=== PATIENT | male | born 1940 | race Caucasian/White ===

== ENCOUNTER → 2018-02-12 07:45 | Outpatient (CLI) | payer MEDICARE, SELFPAY ==
[2018-02-12 07:50] LABS: Microscopic, Urine URINE MICROSCOPIC (MICROSCOPIC)
--- NOTE | 2018-02-12 08:07 | CA_ITS ---
PROCEDURE: 2-D M-mode and color Doppler study INDICATIONS FOR THE TEST: Chest pain COPD Heart MurmurX Tobacco Smoking Palpitations Fatigue Syncope Edema HypertensionXDiabetes MellitusX Rheumatic Fever SOB NARANJO ObesityXHyperlipidemiaX Family History HD Additional History ABN EKG LBBB,AF? PATIENT INFORMATION HEIGHT: 73 WEIGHT:255 GENDER: Male B/P:170/90 2-D/M-MODE INTERPRETATION: 2-D MEASUREMENTS OBSERVED VALUES IN CMS Right Ventricular Dimension (RVDd) 2.5 Interventricular Septum (Thickness)(IVsd) 1.0 Left Ventricular Internal Dimensions(LVIDd) 5.5 Left Ventricular Posterior Wall (Thickness)(LVPWd) 1.2 Aortic Root 4.0 Aortic Cusp Separation 1.4 Left Atrial Dimensions (LAD) 4.4 2D 1. Left atrium is mildly enlarged, left ventricle is normal size, there is mild qualitative concentric left ventricular hypertrophy, visually estimated ejection fraction 55% with no obvious regional wall motion abnormality. 2. The right atrium is normal size, right ventricle is mildly enlarged with normal contractility. 3. The aortic valve is thickened and calcified with mild restriction the leaflet mobility. 4. The mitral and tricuspid valve leaflets are minimally thickened. 5. The pulmonic valve is poorly visualized. 6. No significant pericardial effusion noted. DOPPLER INTERROGATION: The maximum aortic out flow velocity recorded study 2.3 m/s, resulting in a mean gradient across valve of 11 mmHg which represents mild aortic stenosis, there is mild aortic insufficiency present. There is mild mitral and tricuspid regurgitation present, calculated right ventricular systolic pressure approximately 50 mmHg consistent with moderate pulmonary hypertension, diastolic parameters are inconclusive. CONCLUSION: 1. Mildly enlarged left atrium, normal left ventricular size, visually estimated ejection fraction 55% with no obvious regional wall motion abnormality, diastolic parameters are inconclusive. 2. Mildly enlarged right ventricle with normal contractility. 3. Thickened and calcified aortic valve mean gradient across valve of 11 mmHg represents mild aortic stenosis, there is mild aortic insufficiency present. 4. Mild mitral and tricuspid regurgitation, calculated right ventricular systolic pressure is 50 mmHg consistent with moderate pulmonary hypertension. 5. No significant pericardial effusion noted.
[2018-02-12 08:35] LABS: Basophils % 0.4 % (0.1-2.0); Eosinophils # 0.1 K/mm3 (0.0-0.4); Eosinophils % 2.7 % (0.1-12.0); Hematocrit 44.5 % (42.0-52.0); Hemoglobin 13.8 g/dL (14.1-18.0); Lymphocytes # 1.5 K/mm3 (0.7-4.5); Lymphocytes % 29.7 K/mm3 (10-50); Mean Corpuscular HGB Conc 31.1 g/dL (31.8-35.4); Mean Corpuscular Hemoglobin 28.1 pg (27.0-31.2); Mean Corpuscular Volume 90.4 fl (80-94); Mean Platelet Volume 8.1 fl (7.4-10.4); Monocytes # 0.3 K/mm3 (0.1-1.0); Monocytes % 6.3 % (1.7-9.3); Neutrophils # 3.2 K/mm3 (1.8-7.8); Neutrophils % 60.8 % (37.0-80.0); Platelet Count 181 K/mm3 (142-424); Red Blood Count 4.92 M/mm3 (4.60-6.20); Red Cell Distribution Width 13.9 % (11.5-17.5); White Blood Count 5.2 K/mm3 (4.8-10.8)
[2018-02-12 09:22] LABS: Appearance,Urine CLEAR (Clear); Bilirubin,Urine Negative (Negative); Blood, Urine Negative (Negative); Color,Urine YELLOW (Yellow); Glucose,Urine (UA) Negative (Negative); Ketones,Urine Negative (Negative); Leukocyte Esterase,Urine Negative (Negative); Nitrate,Urine Negative (Negative); PH,Urine 5.5 (5.0-8.5); Protein,Urine Negative (Negative); Urobilinogen,Urine 0.2 EU/dl (0.2)
[2018-02-12 09:41] LABS: Hemoglobin A1C 6.4 % (0.0-7.0)
[2018-02-12 10:06] LABS: Bacteria,Urine Trace /lpf; Squamous Epithelial Cell,Urine Occasional #/hpf (0-5); Uric Acid Crystals,Urine 2+ /lpf; WBC,Urine Occasional #/hpf (0-3)
[2018-02-12 11:11] LABS: Alanine Aminotransferase 17 U/L (12-78); Albumin Level 3.3 gm/dL (3.4-5.0); Albumin/Globulin Ratio 0.8 (1.1-1.8); Alkaline Phosphatase 85 U/L (46-116); Anion Gap 11.6 mEq/L (5-15); Aspartate Amino Transferase 18 U/L (15-37); Bilirubin,Total 0.5 mg/dL (0.2-1.0); Blood Urea Nitrogen 21 mg/dL (7-18); Calcium 8.9 mg/dL (8.5-10.1); Carbon Dioxide 30 mmol/L (21.0-32.0); Chloride 106 mmol/L (98-107); Chol/HDL Ratio 5.2 (1-3.5); Cholesterol 202 mg/dL (140-200); Creatinine,Serum 0.83 mg/dL (0.70-1.30); Estimated Glomerular Filt Rate 90 ml/min (>60); GFR (African American) 109 ML/MIN (>60); Globulin 3.9 gm/dl (1.3-3.2); Glucose 124 mg/dL (74-106); HDL Cholesterol 39 mg/dL (27-67); LDL Cholesterol 130 mg/dL (0-130); Potassium 4.6 mmoL/L (3.5-5.1); Prostate Specific Ag Screen 1.5 ng/mL (0.0-4.0); Sodium 143 mmol/L (136-145); Thyroid Stimulating Hormone 5.03 uIU/ml (0.358-3.740); Total Protein,Serum 7.2 gm/dL (6.4-8.2); Triglycerides 163 mg/dL (30-200); VLDL Cholesterol 33 mg/dL (0-40)
[2018-02-15 13:30] LABS: Microalbumin, Urine <3.0 ug/mL (Not Estab.)
== END ==
PROVIDERS: Visit Provider Emergency Medicine
DX: Z12.5 Encounter for screening for malignant neoplasm of prostate (principal); E78.5 Hyperlipidemia, unspecified; E11.9 Type 2 diabetes mellitus without complications; E03.9 Hypothyroidism, unspecified; M83.9 Adult osteomalacia, unspecified; E80.7 Disorder of bilirubin metabolism, unspecified; R01.1 Cardiac murmur, unspecified
CPT/HCPCS: 36415; 80053; 80061; 81001; 82043; 83036; 84443; 85025; 93306; G0103

== ENCOUNTER → 2018-04-02 08:29 | Outpatient (CLI) | payer MEDICARE, SELFPAY ==
[2018-04-02 12:17] LABS: Thyroid Stimulating Hormone 1.42 uIU/ml (0.358-3.740)
== END ==
PROVIDERS: Visit Provider Emergency Medicine
DX: E03.9 Hypothyroidism, unspecified (principal)
CPT/HCPCS: 36415; 84443

== ENCOUNTER → 2018-12-09 07:36 | Outpatient (CLI) | payer MEDICARE, SELFPAY ==
[2018-12-09 07:44] LABS: Microscopic, Urine URINE MICROSCOPIC (MICROSCOPIC)
[2018-12-09 08:04] LABS: Basophils % 0.8 % (0.1-2.0); Eosinophils # 0.1 K/mm3 (0.0-0.4); Eosinophils % 2.9 % (0.1-12.0); Hemoglobin 13.8 g/dL (14.1-18.0); Lymphocytes # 1.3 K/mm3 (0.7-4.5); Lymphocytes % 26.4 % (10-50); Mean Corpuscular HGB Conc 32.9 g/dL (31.8-35.4); Mean Corpuscular Hemoglobin 28.4 pg (27.0-31.2); Mean Corpuscular Volume 86.5 fl (80-94); Mean Platelet Volume 7.9 fl (7.4-10.4); Monocytes # 0.3 K/mm3 (0.1-1.0); Neutrophils # 3.1 K/mm3 (1.8-7.8); Platelet Count 187 K/mm3 (142-424); Red Blood Count 4.85 M/mm3 (4.60-6.20); Red Cell Distribution Width 14.1 % (11.5-17.5); White Blood Count 4.8 K/mm3 (4.8-10.8)
[2018-12-09 08:16] LABS: Appearance,Urine CLEAR (Clear); Bilirubin,Urine Negative (Negative); Blood, Urine Negative (Negative); Color,Urine YELLOW (Yellow); Glucose,Urine (UA) Negative (Negative); Ketones,Urine Negative (Negative); Leukocyte Esterase,Urine Negative (Negative); Nitrate,Urine Negative (Negative); Protein,Urine Negative (Negative); Urobilinogen,Urine 0.2 EU/dl (0.2)
[2018-12-09 08:25] LABS: Bacteria,Urine Trace /lpf; Squamous Epithelial Cell,Urine Occasional #/hpf (0-5)
[2018-12-09 08:56] LABS: Erythrocyte Sedimentation Rate 43 mm/hr (0-20)
[2018-12-09 09:42] LABS: Alanine Aminotransferase 20 U/L (12-78); Albumin Level 3.1 gm/dL (3.4-5.0); Albumin/Globulin Ratio 0.8 (1.1-1.8); Alkaline Phosphatase 87 U/L (46-116); Anion Gap 12.6 mEq/L (5-15); Aspartate Amino Transferase 15 U/L (15-37); Bilirubin,Total 0.4 mg/dL (0.2-1.0); Blood Urea Nitrogen 20 mg/dL (7-18); Calcium 8.7 mg/dL (8.5-10.1); Carbon Dioxide 30 mmol/L (21.0-32.0); Chloride 105 mmol/L (98-107); Cholesterol 204 mg/dL (140-200); Creatinine,Serum 0.83 mg/dL (0.70-1.30); Estimated Glomerular Filt Rate 90 ml/min (>60); GFR (African American) 109 ML/MIN (>60); Glucose 123 mg/dL (74-106); HDL Cholesterol 41 mg/dL (27-67); LDL Cholesterol 144 mg/dL (0-130); Potassium 4.6 mmoL/L (3.5-5.1); Prostate Specific Ag, Diagnost 1.36 ng/mL (0.0-4.0); Sodium 143 mmol/L (136-145); Thyroid Stimulating Hormone 2.48 uIU/ml (0.358-3.740); Total Protein,Serum 7.1 gm/dL (6.4-8.2); Triglycerides 93 mg/dL (30-200); VLDL Cholesterol 19 mg/dL (0-40)
[2018-12-09 11:11] LABS: Hemoglobin A1C 6.6 % (0.0-7.0)
[2018-12-11 14:26] LABS: Vitamin B12 373 pg/mL (232-1245)
== END ==
PROVIDERS: Visit Provider Emergency Medicine
DX: E03.9 Hypothyroidism, unspecified (principal); E11.9 Type 2 diabetes mellitus without complications; R97.20 Elevated prostate specific antigen [PSA]; I10 Essential (primary) hypertension; E78.5 Hyperlipidemia, unspecified; E53.8 Deficiency of other specified B group vitamins
CPT/HCPCS: 36415; 80053; 80061; 81001; 82088; 82533; 82607; 82746; 83036; 84153; 84443; 85025; 85651

== ENCOUNTER → 2018-12-11 08:11 | Outpatient (CLI) | payer MEDICARE, SELFPAY ==
[2018-12-18 06:54] LABS: 5-HIAA, Urine 2.4 mg/L (Undefined); 5-HIAA, Urine, 24Hr. 5.2 mg/24 hr (0.0-14.9)
[2018-12-20 06:18] LABS: Metanephrine, U,24hr 196 ug/24 hr (45-290); Metanephrine, Ur 91 ug/L (Undefined); Normetanephr.,U,24h 417 ug/24 hr (82-500); Normetanephrine, Ur 194 ug/L (Undefined)
[2018-12-25 17:08] LABS: Epinephrine, U, 24hr 6 ug/24 hr (0-20); Norepinephrine,U,24h 58 ug/24 hr (0-135)
[2018-12-26 07:08] LABS: Dopamine, Ur, 24hr 316 ug/24 hr (0-510); Dopamine, Urine 147 ug/L (Undefined); Epinephrine, Urine 3 ug/L (Undefined); Norepinephrine, Ur 27 ug/L (Undefined)
== END ==
PROVIDERS: Visit Provider Emergency Medicine
DX: I10 Essential (primary) hypertension (principal)
CPT/HCPCS: 82384; 83497; 83835

== ENCOUNTER → 2021-03-14 15:42 | Outpatient (CLI) | payer MEDICARE, SELFPAY ==
[2021-03-14 15:54] LABS: Basophils % 0.6 % (0.1-2.0); Eosinophils # 0.1 K/mm3 (0.0-0.4); Eosinophils % 2.1 % (0.1-12.0); Hematocrit 42.6 % (42.0-52.0); Hemoglobin 14.2 g/dL (14.1-18.0); Lymphocytes # 1.5 K/mm3 (0.7-4.5); Lymphocytes % 25.2 % (10-50); Mean Corpuscular HGB Conc 33.4 g/dL (31.8-35.4); Mean Corpuscular Hemoglobin 30.1 pg (27.0-31.2); Mean Corpuscular Volume 90.2 fl (80-94); Mean Platelet Volume 9.1 fl (7.4-10.4); Monocytes # 0.4 K/mm3 (0.1-1.0); Neutrophils % 66.1 % (37.0-80.0); Platelet Count 193 K/mm3 (142-424); Red Blood Count 4.72 M/mm3 (4.60-6.20); Red Cell Distribution Width 14.8 % (11.5-17.5)
[2021-03-14 16:19] LABS: Chloride 105 mmol/L (98-107); Sodium 140 mmol/L (136-145)
[2021-03-14 16:20] LABS: Potassium 4.4 mmoL/L (3.5-5.1)
[2021-03-14 16:22] LABS: Alanine Aminotransferase 15 U/L (12-78); Albumin Level 3.7 g/dl (3.5-5.0); Alkaline Phosphatase 86 U/L (38-126); Anion Gap 11.4 mEq/L (5-15); Aspartate Amino Transferase 23 U/L (17-59); Bilirubin,Total 0.4 mg/dl (0.2-1.3); Blood Urea Nitrogen 19 mg/dl (9-20); Carbon Dioxide 28 mmol/L (22.0-30.0); Estimated Glomerular Filt Rate 93 ml/min (>60); GFR (African American) 113 ML/MIN (>60); Globulin 3.7 g/dL (1.3-3.2); Total Protein,Serum 7.4 g/dl (6.3-8.2)
[2021-03-14 16:23] LABS: Calcium 8.9 mg/dl (8.4-10.2); Chol/HDL Ratio 4.5 (1-3.5); Cholesterol 205 mg/dl (140-200); Glucose 137 mg/dl (74-100); HDL Cholesterol 46 mg/dl (40-60); Triglycerides 137 mg/dl (30-150); VLDL Cholesterol 27 mg/dL (0-40)
[2021-03-14 16:34] LABS: Direct LDL Cholesterol 115.81 mg/dL (100-129)
[2021-03-14 16:40] LABS: T4 (Thyroxine) 6.1 ug/dl (5.53-11.0)
[2021-03-14 16:54] LABS: Thyroid Stimulating Hormone 2.58 uIU/mL (0.465-4.68)
[2021-03-14 17:02] LABS: 25-OH Vitamin D, Total 30.8 ng/mL (30-100)
== END ==
PROVIDERS: Visit Provider Emergency Medicine
DX: E55.9 Vitamin D deficiency, unspecified (principal); I10 Essential (primary) hypertension
CPT/HCPCS: 80053; 80061; 82306; 84436; 84443; 85025

== ENCOUNTER → 2022-03-07 14:54 | Outpatient (CLI) | payer MEDICARE, SELFPAY ==
[2022-03-07 14:35] LABS: Basophils # 0.1 K/mm3 (0-0.2); Basophils % 0.8 % (0.1-2.0); Eosinophils # 0.1 K/mm3 (0.0-0.4); Eosinophils % 1.8 % (0.1-12.0); Hematocrit 44.2 % (42.0-52.0); Hemoglobin 13.1 g/dL (14.1-18.0); Lymphocytes # 1.5 K/mm3 (0.7-4.5); Lymphocytes % 21.6 % (10-50); Mean Corpuscular HGB Conc 29.6 g/dL (31.8-35.4); Mean Corpuscular Hemoglobin 28.3 pg (27.0-31.2); Mean Corpuscular Volume 95.7 fl (80-94); Mean Platelet Volume 9.2 fl (7.4-10.4); Monocytes # 0.5 K/mm3 (0.1-1.0); Monocytes % 6.6 % (1.7-9.3); Neutrophils # 4.7 K/mm3 (1.8-7.8); Neutrophils % 69.3 % (37.0-80.0); Platelet Count 224 K/mm3 (142-424); Red Blood Count 4.61 M/mm3 (4.60-6.20); Red Cell Distribution Width 14.9 % (11.5-17.5); White Blood Count 6.8 K/mm3 (4.8-10.8)
[2022-03-07 14:45] LABS: Alanine Aminotransferase 16 U/L (12-78); Albumin Level 3.5 g/dl (3.5-5.0); Albumin/Globulin Ratio 0.9 (1.1-1.8); Alkaline Phosphatase 78 U/L (38-126); Anion Gap 9.6 mEq/L (5-15); Aspartate Amino Transferase 23 U/L (17-59); Bilirubin,Total 0.2 mg/dl (0.2-1.3); Blood Urea Nitrogen 15 mg/dl (9-20); Carbon Dioxide 31 mmol/L (22.0-30.0); Chloride 103 mmol/L (98-107); Chol/HDL Ratio 5.4 (1-3.5); Cholesterol 183 mg/dl (140-200); Estimated Glomerular Filt Rate 81 ml/min (>60); GFR (African American) 98 ML/MIN (>60); Globulin 3.7 g/dL (1.3-3.2); Glucose 117 mg/dl (74-100); HDL Cholesterol 34 mg/dl (40-60); Potassium 4.6 mmoL/L (3.5-5.1); Sodium 139 mmol/L (136-145); Total Protein,Serum 7.2 g/dl (6.3-8.2); Triglycerides 200 mg/dl (30-150); VLDL Cholesterol 40 mg/dL (0-40)
[2022-03-07 14:55] LABS: Direct LDL Cholesterol 91.23 mg/dL (100-129)
[2022-03-07 15:06] LABS: 25-OH Vitamin D, Total 24.7 ng/mL (30-100)
[2022-03-07 15:20] LABS: Thyroid Stimulating Hormone 2.62 uIU/mL (0.465-4.68)
== END ==
PROVIDERS: PCP Emergency Medicine; Visit Provider Emergency Medicine
DX: E66.9 Obesity, unspecified (principal); I10 Essential (primary) hypertension; R53.83 Other fatigue; Z12.5 Encounter for screening for malignant neoplasm of prostate; Z68.30 Body mass index [BMI] 30.0-30.9, adult
CPT/HCPCS: 80053; 80061; 82306; 84443; 85025; G0103

== ENCOUNTER 2022-07-16 08:45 | Emergency (ER) | payer MEDICARE, SELFPAY ==
[2022-07-16 08:45] VITALS: BP 184/85; PULSE 89; RESP 20; TEMP 37; O2SAT 96; BMI 30.3
--- NOTE | 2022-07-16 08:57 | PC.NURSE ---
ED MD AT BEDSIDE
--- NOTE | 2022-07-16 09:01 | XR_ITS ---
PROCEDURE INFORMATION: Exam: XR Chest Exam date and time: 07/16/2022 9:49 AM Age: 82 years old Clinical indication: Cough and shortness of breath; Patient HX: Right lower lobe of lung removed in the 's TECHNIQUE: Imaging protocol: Radiologic exam of the chest. Views: 2 views. COMPARISON: No relevant prior studies available. FINDINGS: Lungs: Surgical changes in the right lung. Pulmonary vascular congestion. Pleural spaces: Possible small right pleural effusion versus pleural thickening and elevation of the right hemidiaphragm given prior right lung surgery. No discernible pneumothorax. Heart/Mediastinum: Unremarkable. No cardiomegaly. Bones/joints: Unremarkable. IMPRESSION: 1. Pulmonary vascular congestion. 2. Possible small right pleural effusion versus pleural thickening and elevation of the right hemidiaphragm given prior right lung surgery.
[2022-07-16 09:03] LABS: Coronavirus 19, PCR Not Detected (NotDetected); Influenza A, PCR Not Detected (NotDetected); Influenza B, PCR Not Detected (NotDetected)
--- NOTE | 2022-07-16 09:03 | HMH.EDGENADL ---
Discharge Plan Disposition Patient Disposition: Home, Self-Care Condition: Good Prescriptions Prescriptions: New doxycycline hyclate 100 mg capsule 100 mg PO BID 10 Days Qty: 20 0RF albuterol sulfate 90 mcg/actuation HFA aerosol inhaler 2 inh inhalation Q6H PRN (Reason: shortness of breath or wheezing) Qty: 6.7 0RF methylprednisolone [Medrol (Remberto)] 4 mg tablets,dose pack 4 mg PO DAILY Qty: 21 0RF No Action clonidine HCl 0.1 mg tablet 0.1 mg PO HS Qty: 90 1RF ergocalciferol (vitamin D2) 1,250 mcg (50,000 unit) capsule 1,250 mcg PO WEEKLY Qty: 14 3RF losartan 100 mg tablet 100 mg PO DAILY Qty: 90 1RF Referrals Follow up/Referrals: Dom Pedraza MD [Primary Care Provider] - See instructions Activity Restrictions/Add. Instructions Additional Instructions/Restrictions: You were evaluated in the emergency department today and diagnosed with pneumonia. Please seed cone picker your prescriptions to the pharmacy and use them as prescribed. Follow-up with your primary care provider over the next 48 hours. Return to the emergency department for any new or worsening symptoms. Clinical Impressions Clinical Impression: Pneumonia Qualifiers: Pneumonia type: due to unspecified organism Laterality: right Lung location: unspecified part of lung Qualified Code(s): J18.9 - Pneumonia, unspecified organism Instructions Patient Instructions: Pneumonia-Adult Discharge ED Provider: Shante Malone General Adult HPI General Chief complaint: Upper Respiratory Infection Stated complaint: SOA, Drainage, congestion, no appetite Time Seen by Provider: 07/16/22 08:53 Mode of Arrival: Ambulatory Limitations: No Limitations Description of Symptoms (Recalled from ER Triage Doc. by RN): PT REPORTS COUGH, CONGESTION, RUNNY NOSE AND SHORTNESS OF BREATH X 1 WEEK. History of Present Illness HPI narrative: This patient is an 82-year-old male with a history of lung lobectomy presents to the emergency department for evaluation of fever, cough, congestion, and runny nose that started Sunday. He reports that he was seen at his primary care office on Sunday, where he believes he picked up an upper respiratory infection while sitting in the waiting room. He complains of dyspnea on exertion associated with this and states that he is gone through a whole box of tissues from coughing up things and blowing his nose. He denies any chest pain, abdominal pain, nausea, vomiting, changes bowel movements, rashes, swelling, or other concerns. Related Data Previous Rx's Medication Instructions Recorded clonidine HCl 0.1 mg tablet 0.1 mg PO HS #90 tabs 07/10/22 ergocalciferol (vitamin D2) 1,250 1,250 mcg PO WEEKLY #14 caps 07/10/22 mcg (50,000 unit) capsule losartan 100 mg tablet 100 mg PO DAILY #90 tabs 07/10/22 albuterol sulfate 90 mcg/actuation 2 inh inhalation Q6H PRN shortness 07/16/22 aerosol inhaler of breath or wheezing #6.7 grams doxycycline hyclate 100 mg capsule 100 mg PO BID 10 days #20 caps 07/16/22 methylprednisolone 4 mg tablets in 4 mg PO DAILY #21 tabs 07/16/22 a dose pack (Medrol (Remberto)) Allergies Allergy/AdvReac Type Severity Reaction Status Date / Time No Known Allergies Allergy Verified 07/10/22 09:54 [facility] Medical History (Updated 07/16/22 @ 10:20 by Shante Malone DO) Hypertension Surgical History (Updated 07/16/22 @ 09:18 by Keesha Brady RN) History of lung surgery Social History Smoking Status: Never smoker alcohol intake: current substance use type: denies use current occupational status: retired Travel in the last 8 weeks: None household members: spouse housing: house ROS Obtained: Yes All systems reviewed & no additional complaints except as documented 14 point review of systems obtained and negative except as mentioned in HPI. Physical Exam General General appearance: alert and in no apparent distr
--- NOTE | 2022-07-16 09:08 | PC.NURSE ---
resp called for duo neb
--- NOTE | 2022-07-16 09:12 | PC.NURSE ---
RT at BS
--- NOTE | 2022-07-16 09:12 | PC.NURSE ---
RESPIRATORY AT BEDSIDE
[2022-07-16 09:34] VITALS: BP 137/75; PULSE 81; RESP 18; O2SAT 95
[2022-07-16 09:37] VITALS: PULSE 68; PULSE 71
--- NOTE | 2022-07-16 09:56 | PC.NURSE ---
PT TO XR
--- NOTE | 2022-07-16 10:02 | PC.NURSE ---
PT RETURNED FROM XR
[2022-07-16 10:30] VITALS: BP 123/77; PULSE 78; RESP 20; TEMP 37; O2SAT 96
== END 2022-07-16 10:30 | disposition home or self-care (01) ==
PROVIDERS: Emergency Provider Emergency Medicine; PCP Emergency Medicine
DX: J18.9 Pneumonia, unspecified organism (principal)
CPT/HCPCS: 71046; 94640; 99284; C9803; U0003; U0005

== ENCOUNTER 2022-10-13 08:44 | Inpatient (IN) | payer MEDICARE, SELFPAY ==
[2022-10-13] VITALS (13 sets, daily range): BP systolic 141–204; BP diastolic 73–100; PULSE 66–103; RESP 13–26; TEMP 36.5–36.8; O2SAT 92–100; BMI 30.9; BMI 30.4
--- NOTE | 2022-10-13 08:51 | ECG_ITS ---
APPROVED REPORT Exam: Resting ECG HR:88 bpm ECG Measurements Heart Rate 88 AXES NM 181 P 63 QRSd 145 QRS -61 QT 382 T 102 QTc 428 Conclusion SINUS RHYTHM WITH FREQUENT VENTRICULAR PREMATURE COMPLEXES INTRAVENTRICULAR CONDUCTION DELAY [130+ ms QRS DURATION] POSSIBLE LATERAL MYOCARDIAL INFARCTION , OF INDETERMINATE AGE [30 ms Q WAVE IN I/aVL/V5/V6] ABNORMAL ECG UNCONFIRMED REPORT Electronically signed by : Conrad Marquez MD 10/14/2022 12:09:28
--- NOTE | 2022-10-13 08:56 | XR_ITS ---
FINAL REPORT CLINICAL HISTORY: sob COMPARISON: 07/16/2022 FINDINGS: SINGLE-VIEW CHEST There is mild cardiomegaly. There is volume loss at the right base. Chronic changes are seen in both lungs. The mediastinum is normal. There are surgical clips at the right hilum. There is no pneumothorax. IMPRESSION: No acute cardiopulmonary process. Reviewed, Interpreted and Dictated by Lester Barger MD Transcribed by Traci Coker Authenticated and [facility]
--- NOTE | 2022-10-13 08:58 | PC.NURSE ---
radiology aware at chest xray.
--- NOTE | 2022-10-13 09:10 | PC.NURSE ---
Radiology @ BS for x-ray
[2022-10-13 09:15] LABS: Coronavirus 19, PCR Not Detected (NotDetected); Influenza A, PCR Not Detected (NotDetected); Influenza B, PCR Not Detected (NotDetected)
[2022-10-13 09:15] LABS: Basophils # 0.1 K/mm3 (0-0.2); Basophils % 0.5 % (0.1-2.0); Eosinophils # 0.2 K/mm3 (0.0-0.4); Eosinophils % 1.8 % (0.1-12.0); Hematocrit 45.1 % (42.0-52.0); Hemoglobin 14.2 g/dL (14.1-18.0); Lymphocytes # 1.1 K/mm3 (0.7-4.5); Lymphocytes % 9.3 % (10-50); Mean Corpuscular HGB Conc 31.5 g/dL (31.8-35.4); Mean Corpuscular Hemoglobin 29.7 pg (27.0-31.2); Mean Corpuscular Volume 94.1 fl (80-94); Mean Platelet Volume 8.4 fl (7.4-10.4); Monocytes # 0.5 K/mm3 (0.1-1.0); Monocytes % 4.2 % (1.7-9.3); Neutrophils # 9.7 K/mm3 (1.8-7.8); Neutrophils % 84.3 % (37.0-80.0); Platelet Count 207 K/mm3 (142-424); Red Blood Count 4.79 M/mm3 (4.60-6.20); Red Cell Distribution Width 15.5 % (11.5-17.5); White Blood Count 11.6 K/mm3 (4.8-10.8)
[2022-10-13 09:24] LABS: Alanine Aminotransferase 21 U/L (12-78); Albumin Level 4.1 g/dl (3.5-5.0); Albumin/Globulin Ratio 1.1 (1.1-1.8); Alkaline Phosphatase 77 U/L (38-126); Aspartate Amino Transferase 30 U/L (17-59); Bilirubin,Total 0.7 mg/dl (0.2-1.3); Blood Urea Nitrogen 14 mg/dl (9-20); Calcium 8.6 mg/dl (8.4-10.2); Carbon Dioxide 32 mmol/L (22.0-30.0); Chloride 105 mmol/L (98-107); Creatinine Clearance Estimated 89 mL/min (50-200); Estimated Glomerular Filt Rate 109 ml/min (>60); GFR (African American) 131 ML/MIN (>60); Globulin 3.9 g/dL (1.3-3.2); Glucose 211 mg/dl (74-100); Lactic Acid 1.7 mmol/L (0.7-2.1); Sodium 139 mmol/L (136-145)
[2022-10-13 10:05] LABS: NT Pro Brain Natriuretic Pep. 1770 pg/mL (0-450)
--- NOTE | 2022-10-13 10:35 | HMH.EDGENADL ---
Discharge Plan Disposition Patient Disposition: Admitted As Inpatient Condition: Good Clinical Impressions Clinical Impression: CHF (congestive heart failure) Discharge ED Provider: Wing Schneider General Adult HPI General Chief complaint: Shortness of Breath/Dyspnea Stated complaint: SOA Time Seen by Provider: 10/13/22 08:47 Mode of Arrival: Ambulatory Source of Information: Patient Limitations: No Limitations Description of Symptoms (Recalled from ER Triage Doc. by RN): pt states he has had increased shortness of breath lately, states he was diagnosed with pneumonia about 2 months ago and doesn't fee like he's any better, son states pt has been very weak, denies fever, chills, body aches, denies cough History of Present Illness HPI narrative: 82yo M presents to the emergency department secondary to ongoing shortness of breath. Reports he was treated for pneumonia roughly 6 weeks ago and has never fully recovered. 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 Denies fever. Denies cough. Denies chest pain. Related Data Home Medications Medication Instructions Recorded Confirmed aspirin 81 mg chewable tablet 81 mg PO DAILY 11/06/22 11/20/22 Previous Rx's Medication Instructions Recorded ergocalciferol (vitamin D2) 1,250 1,250 mcg PO WEEKLY Supplement #4 10/23/22 mcg (50,000 unit) capsule caps losartan 100 mg tablet 100 mg PO DAILY Hypertension #30 10/23/22 tabs albuterol sulfate 0.63 mg/3 mL 0.63 mg (3 mL) inhalation Q6H PRN 11/06/22 solution for nebulization shortness of breath or wheezing #90 mL furosemide 20 mg tablet (Lasix) 20 mg PO DAILY chf 30 days #30 tabs 11/14/22 carvedilol 12.5 mg tablet 12.5 mg PO BID #60 tabs 11/20/22 spironolactone 50 mg tablet 50 mg PO DAILY #90 tabs 11/20/22 (Aldactone) Allergies Allergy/AdvReac Type Severity Reaction Status Date / Time No Known Allergies Allergy Verified 11/20/22 08:43 [facility] Disclaimer: The information contained in this section may have been updated after the patient was seen, as this information can be updated by other users. Medical History (Updated 11/20/22 @ 09:54 by RADHA Mackey) Abnormal resting ECG findings Acute heart failure with preserved ejection fraction (HFpEF) Aortic stenosis Brain aneurysm Diastolic dysfunction Diminished hearing Hypertension Surgical History History of lung surgery Family History Other Colon cancer Social History Smoking Status: Never smoker alcohol intake: current substance use type: denies use current occupational status: retired Travel in the last 8 weeks: None household members: spouse housing: house ROS Obtained: Yes Systems reviewed as appropriate & no additional complaints except as documented Physical Exam General General appearance: alert and in no apparent distress Head Head exam: atraumatic Eye Eye exam: Present normal appearance ENT ENT exam: Present normal exam Neck Neck exam: Present normal inspection Chest Chest inspection: Present normal inspection Respiratory Respiratory exam: Present normal lung sounds bilaterally and other (Mild tachypnea); Absent respiratory distress Cardiovascular Cardiovascular exam: Present regular rate, normal rhythm and normal heart sounds Abdominal Exam Abdominal exam: Present soft; Absent distention or tenderness Extremities Exam Extremities exam: Present normal inspection and normal capillary refill; Absent tenderness or edema Neurological Exam Neurological exam: Present alert and oriented X3 Psychiatric Psychiatric exam: Present normal affect Skin Skin exam: Present warm and dry Medical Decision Making Medical Records Medical records reviewed: Yes I reviewed the patient's medical records. Benjamin Forbes
--- NOTE | 2022-10-13 10:38 | PC.NURSE ---
ROBERT CAMPBELL SPEAKING WITH HOSPITALIST AT THIS TIME.
--- NOTE | 2022-10-13 10:40 | CT_ITS ---
FINAL REPORT TECHNIQUE: Thin section axial CT images were performed from the lung apices to the upper abdomen after the administration of IV contrast. 3-D and MIP reconstructions performed. This study was performed with techniques to keep radiation doses as low as reasonably achievable (ALARA). Individualized dose reduction techniques using automated exposure control or adjustment of mA and/or kV according to the patient''s size were employed. CLINICAL HISTORY: Shortness of breath FINDINGS: There is no evidence for pulmonary embolism. The thoracic aorta is patent without evidence of dissection. There is no axillary adenopathy. There is no mediastinal or hilar adenopathy. The heart size is normal. There is no pleural or pericardial effusion. There is volume loss in the right hemithorax. There is linear scar at the right base with elevation of the right hemidiaphragm, probably related to prior pulmonary resection. Surgical clips are seen in the right infrahilar region. There are patchy airspace infiltrates in the superior right upper lobe and inferior right lower lobe consistent with acute pneumonia. Limited images of the upper abdomen are unremarkable. IMPRESSION: No evidence of pulmonary embolism or aortic dissection. Bilateral pneumonia. Postoperative changes in the right hilum. Reviewed, Interpreted and Dictated by Lester Barger MD Transcribed by Traci Coker Authenticated and . [facility]
--- NOTE | 2022-10-13 10:40 | PC.NURSE ---
A NADEEN RN SPEAKING WITH CARE MANAGEMENT AT THIS TIME.
--- NOTE | 2022-10-13 10:43 | PC.NURSE ---
RADIOLOGY AWARE OF CTA.
--- NOTE | 2022-10-13 10:54 | HMH.PHAINT1 ---
Pharmacy Intervention Comments: MEDICATION RECONCILIATION COMPLETED ON PATIENT USING EXTERNAL FILL HISTORY FROM PHARMACY. -INGRID ISLAS, MAMADOUD
--- NOTE | 2022-10-13 10:57 | PC.NURSE ---
Patient called out; helped patient ambulate to bathroom
--- NOTE | 2022-10-13 11:15 | PC.NURSE ---
report given to Hilda CHAVARRIA on 2nd floor. Md wants the pt to stay in the ER until CT scan is completed and read. Floor nurse aware of this
[2022-10-13 11:22] LABS: Troponin I 0.03 ng/ml (0.00-0.034)
--- NOTE | 2022-10-13 11:40 | PC.NURSE ---
Hemant RN @ BS
--- NOTE | 2022-10-13 11:42 | PC.NURSE ---
pt updated on poc. pt states he has been to the bathroom 4times. pt ambulating to bathroom at this time
--- NOTE | 2022-10-13 12:42 | PC.NURSE ---
Rounded on pt and family member; call light within reach. Pt does not need anything at this time
--- NOTE | 2022-10-13 13:15 | CA_ITS ---
APPROVED REPORT EXAM: Comprehensive 2D, Doppler, and color-flow Echocardiogram Edge Grinder: Faith Ritchie RDCS Ht: 6 ft 1 in Wt: 235lbs BSA: 2.30 BP: 146/86 mmHg Indications: SOA,CAD, 2D Dimensions LVOT 2.68 cm (M/F) 1.5-2.5 LA Volume 89.70 mL LA Volume Index 38.83 mL/m2 (M/F) 16-34 M-Mode Dimensions RVDd 2.86 cm (0.9-2.6) LA Diam 5.89 cm (1.9-4.0) LVDd 4.41 cm (3.5-5.7) Ao Diam 4.00 cm (2.0-3.7) LVDs 3.00 cm (3.5-5.7) IVSd 1.69 cm (0.6-1.1) PWd 1.60 cm (0.6-1.1) EF (Teich) 60.30% FS 32.00% EDV (Teich) 88.20 mL ESV (Teich) 35.00 mL LV Diastology E Decel Time 150.00 (160-240 msec) E/A Ratio 0.7 MED E' 4.00 (< 7 cm/sec) E'/MED E' Ratio 15.75 (>14) LAT E' 3.60 (<10 cm/sec) E/LAT E' Ratio 17.50 (>14) Aortic Valve LVOT Max 124.00 (70-110 cm/s) LVOT VTI 25.12 cm AoV Peak Jonathan. 266.00 (50-130 cm/s) AO Peak GR. 29.80 mmHg AO Mean GR. 14.60 (<5 mmHg) AO VTI 45.91 (18-25 cm) YOLI (VTI) 3.09 (2.5-4.5 cm2) Mitral Valve MV E Max Jonathan. 63.00 (40-130 cm/s) MV A Velocity 92.00 (40-130 cm/s) E/A Ratio 0.69 MV Decel. Time 150.00 (160-240 ms) MV PHT 44.00 ms Left Ventricle Left atrium is moderately enlarged, left ventricular normal size, mild concentric left ventricular hypertrophy, estimated ejection fraction 50% with no regional wall motion abnormality, grade 1 diastolic dysfunction seen by tissue Doppler evidence of recent left atrial pressure. Right Ventricle Right atrium and right ventricular normal size and contractility. Aortic Valve Aortic valve is thickened and calcified, mean gradient across the aortic valve is 18 mmHg, this likely represents mild aortic stenosis, there is no significant aortic insufficiency, aortic valve area is not accurately calculated in the study. Mitral Valve Mitral valve has mitral annular calcification, leaflets are minimally thickened, there is no mitral stenosis. There is mild mitral regurgitation. Tricuspid Valve Tricuspid valve is grossly normal, there is mild tricuspid regurgitation, tricuspid regurgitation jet plus is inadequate for calculation of the right ventricular systolic pressure. Pulmonic Valve Pulmonic valve is poorly visualized. Great Vessels Aortic root is normal size. Inferior vena cava is poorly visualized. Pericardium No significant pericardial effusion noted. Conclusion 1. Mild biatrial enlargement, normal left ventricular size, mild concentric left ventricular hypertrophy, estimated ejection fraction 50% with no regional wall motion abnormality, grade 1 diastolic dysfunction seen with tissue Doppler evidence of late left atrial pressure. 2. Thickened and calcified aortic valve with likely mild aortic stenosis, mean gradient is 18 mmHg, valve area is not accurately calculated. 3. Mild mitral and tricuspid regurgitation. 4. No significant pericardial effusion noted. 5. Inferior vena cava is poorly visualized. Electronically signed by : Werner Hall MD 10/13/2022 16:55:29
--- NOTE | 2022-10-13 13:23 | EXP.HP ---
History of Present Illness *Admission Date: 10/13/22 *Reason for visit:: Chief complaint: Shortness of air *History of present illness: This is an 82-year-old male that presents to [facility] emergency department with concerns of shortness of air. His past medical history is significant for hypertension and diminished hearing capacity. He reports approximately 6 weeks ago he saw his PCP for shortness of air and received an antibiotic therapy and he was feeling better. Approximately 2 weeks ago he started feeling short of air again. He reports no associated cough, production of sputum, fever or chills. He denies retrosternal chest pain, palpitations or increased lower extremity edema. He reports his shortness of air has become worse over the past week and occurs with minimal exertion (NYHA III) including bending over to tie his shoes. He has identified orthopnea and has to sleep sitting up. He has not identified any confusion, hallucinations or night sweats. He reports that he has a 3-year-old great granddaughter that captures his affection and reports that she has been ill a few times this winter. In the ED a chest x-ray is personally interpreted and concerning for pneumonia, cardiomegaly and pulmonary edema. I have reviewed and personally interpreted and his ED labs which identify a mild leukocytoses and normal creatinine and lactic acid. His troponin is negative and his BNP is 1770. He reports improved dyspnea after his IV loop diuretic therapy. I have personally discussed the case with the ED provider Dr. Wing Rae and we discussed that he lives alone, his advanced age and no prior history of cardiology visits or cardiovascular diagnoses other than hypertension. [facility] Disclaimer: The information contained in this section may have been updated after the patient was seen, as this information can be updated by other users. Medical History (Updated 10/13/22 @ 20:09 by Abiel Borja MD) Acute heart failure with preserved ejection fraction (HFpEF) Diminished hearing Hypertension Surgical History History of lung surgery Family History Other Colon cancer Social History (Updated 10/13/22 @ 19:52 by Abiel Borja MD) Smoking Status: Never smoker alcohol intake: current substance use type: denies use current occupational status: retired Travel in the last 8 weeks: None household members: spouse housing: house Review of Systems Review of Systems Review of systems:: pertinent systems reviewed and negative unless documented below Constitutional Constitutional: Denies chills and Denies fever(s) ENT Ears, Nose, Mouth, and Throat: Denies dysphagia *Cardiovascular Cardiovascular: Denies chest pain, Denies diaphoresis, Reports dyspnea, Reports dyspnea on exertion, Denies leg edema, Reports orthopnea and Denies palpitations *Respiratory Respiratory: Reports dyspnea and Reports dyspnea on exertion *Gastrointestinal Gastrointestinal: Denies diarrhea, Denies dysphagia, Denies nausea and Denies vomiting *Neurologic Neurologic: Denies confusion Psychiatric Psychiatric: Denies confusion Endocrine Endocrine: Denies palpitations Meds Home Medications and Allergies Home Medications Medication Instructions Recorded Confirmed Type albuterol sulfate 90 mcg/actuation 2 inh inhalation Q6HP PRN 10/13/22 10/13/22 History aerosol inhaler shortness of breath or wheezing clonidine HCl 0.1 mg tablet 0.1 mg PO HS Hypertension 10/13/22 10/13/22 History ergocalciferol (vitamin D2) 1,250 1,250 mcg PO WEEKLY Supplement 10/13/22 10/13/22 History mcg (50,000 unit) capsule losartan 100 mg tablet 100 mg PO DAILY Hypertension 10/13/22 10/13/22 History New Prescriptions to Start Prescriptions: Allergies Allergy/AdvReac Type Severity Reaction Status Date / Time No Known Allergies Allergy Verified 07/10/22
--- NOTE | 2022-10-13 13:33 | PC.NURSE ---
patient arrived by wheelchair from ED
--- NOTE | 2022-10-13 14:36 | HMH.SLDYSPHA ---
Speech & Language Evaluation Speech/Language Dysphagia Evaluation Start: 10/13/22 14:23 Freq: ONCE Status: Active Protocol: Document 10/13/22 14:23 BRUCE (Rec: 10/13/22 14:35 [id number] Dysphagia Assess/Goals/Plan Assessment Date of Evaluation: 10/13/22 Evaluation Type Initial Certification Assessment/Problems Pt was assessed using a clinical bedside swallow evaluation per MD order. Does Patient Qualify for Service No Qualify/Failure Comment Based on assessment results and clinical observation, pt's swallowing and mastication are WFL and skilled speech therapy services are not warranted at this time. Recommendations PHYSICIAN CERTIFICATION: The specified therapy services are required, authorized, and reviewed every 30 days. Diet Recommendations Normal Liquid Type Recommendations Normal/Thin SL Swallow Guidelines Standard Aspiration Prec. Dysphagia Swallow Precautions/Strategies Sitting Upright (90 deg), Double Swallow,Small Bites and Sips,Alternate Liquids/Solids Plan Pt/Guardian verbally ack understanding Yes of dx/prognosis/goals G -code Required No Education Instructions provided Discussed assessment results, aspiration precautions, and diet recommendations with pt and family, nursing, and care management all of which expressed understanding. Pt/Caregiver able to recall information Able to recall/restate Reinforcement needed Yes Speech & Language HPI History Present Illness Description of Patient Problem Pt is an 82 year old male who presented to the ER at this date 2' ongoing shortness of breath. Per report, Mr. 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 Primary medical history includes: HTN, hx of lung surgery, acute heart failure with preserved ejection fraction, and hx of pna.
--- NOTE | 2022-10-13 18:05 | PC.NURSE ---
Patient alert and oriented. On 2L O2 with continued dyspnea. Up ad enrique to BR for voids. Tolerating oral intake. Antibiotics administered per orders. Denies pain and nausea. Family at bedside throughout shift
[2022-10-14] VITALS (10 sets, daily range): BP systolic 141–167; BP diastolic 76–90; PULSE 58–77; RESP 16–20; TEMP 36.8–36.9; O2SAT 94–99; BMI 29.9
--- NOTE | 2022-10-14 04:35 | PC.NURSE ---
pt has been resting well through the night. satting in the 90's on 2Lnc. pt is sob of at rest. no complaints of pain. vss.
--- NOTE | 2022-10-14 07:36 | EXP.PN ---
Subjective *Date: 10/14/22 *Time: 11:33 Interval history: Date of service October 14, 2022 The patient reports no acute events overnight. He reports that his shortness of breath is improving. Nursing staff reports that he remains afebrile with stable vital signs and saturating appropriately on 2 L of oxygen via nasal cannula. Speech therapy has evaluated the patient and identified no swallowing deficiencies. His morning laboratory studies have been reviewed and discussed. I have personally interpreted his laboratory results as follows: CBC with a resolved leukocytoses and normal white blood cell count 7.9, stable hemoglobin 13.1, hematocrit 41.8, platelet count 177,000. His electrolytes are normal, BUN 15, creatinine 0.9, glucose trend <200s, hemoglobin A1c 6.5%. BNP has improved to 1370. Procalcitonin is negative. Exam Data for Last 24 hours Vital signs and Labs for Last 24 Hours: Temp Pulse Resp BP Pulse Ox 98.5 F 66 16 167/76 H 97 10/14/22 04:00 10/14/22 06:54 10/14/22 04:00 10/14/22 04:00 10/14/22 06:54 Laboratory Results - last 24 hr 10/13/22 08:14: NT-Pro-B Natriuret Pep 1770 H 10/13/22 08:14: Troponin I 0.03 10/13/22 08:51: SARS-CoV-2 (PCR) Not detected, Influenza A Untype (PCR) Not detected, Influenza Type B (PCR) Not detected 10/13/22 08:54: WBC 11.6 H, RBC 4.79, Hgb 14.2, Hct 45.1, MCV 94.1 H, MCH 29.7, MCHC 31.5 L, RDW 15.5, Plt Count 207, MPV 8.4, Neut % (Auto) 84.3 H, Lymph % (Auto) 9.3 L, [place] % (Auto) 4.2, Eos % (Auto) 1.8, Baso % (Auto) 0.5, Neut # (Auto) 9.7 H, Lymph # (Auto) 1.1, [place] # (Auto) 0.5, Eos # (Auto) 0.2, Baso # (Auto) 0.1 10/13/22 08:54: Sodium 139, Potassium 4.0, Chloride 105, Carbon Dioxide 32 H, Anion Gap 6.0, BUN 14, Creatinine 0.70, Estimated Creat Clear 89, Estimated GFR 109, Est GFR ( Amer) 131, Glucose 211 H, Calcium 8.6, Total Bilirubin 0.7, AST 30, ALT 21, Alkaline Phosphatase 77, Total Protein 8.0, Albumin 4.1, Globulin 3.9 H, Albumin/Globulin Ratio 1.1 10/13/22 08:54: Lactate 1.7 I & O for Last 24 hours: Intake & Output 10/11/22 10/12/22 10/13/22 10/14/22 23:59 23:59 23:59 23:59 Intake Total 580 / 580 Output Total 250 / 250 300 / 300 Balance 330 / 330 -300 / -300 Weight 107.757 kg 105.778 kg Constitutional Constitutional: no acute distress, obese and cooperative *Routine HEENT Exam Head: Present normocephalic Eye: Present EOMI and PERRL ENT: Present mucous membranes moist Comments: Diminished hearing capacity *Routine Neck Exam Neck: Present supple; Absent lymphadenopathy *Routine Respiratory Exam Respiratory: Present rhonchi, normal respiratory effort and symmetric chest movement *Routine Cardiovascular Exam Cardiovascular: Present RRR *Routine Abdominal Exam Abdominal: Present soft and normoactive bowel sounds; Absent tenderness *Routine Extremities Exam Extremities: Present full ROM, pulses intact and normal capillary refill; Absent cyanosis, clubbing or edema *Routine Skin Exam Skin: Present warm; Absent rash *Routine Neurological Exam Neurological: Present alert, oriented X3, moving all extremities, normal tone, vision grossly intact and normal speech Routine Psychiatric Exam Psychiatric: Present normal affect, normal thought process, cooperative, good insight and good judgment Assessment and Plan *Assessment and plan (1) Pneumonia: Status: Acute Qualifiers: Laterality: right Lung location: unspecified part of lung Pneumonia type: due to unspecified organism Qualified Code(s): J18.9 - Pneumonia, unspecified organism Category: Medical Code(s): J18.9 - Pneumonia, unspecified organism (2) Acute heart failure with preserved ejection fraction (HFpEF): Status: Acute Category: Medical Code(s): I50.31 - Acute diastolic (congestive) heart failure (3) Hypertension: Status: Acute Category: Medical Code(s): I10 - Essential (primary) hypertension Plan This is an 82-yea
[2022-10-14 09:18] LABS: Basophils # 0.1 K/mm3 (0-0.2); Basophils % 0.6 % (0.1-2.0); Eosinophils # 0.2 K/mm3 (0.0-0.4); Eosinophils % 2.4 % (0.1-12.0); Hematocrit 41.8 % (42.0-52.0); Hemoglobin 13.1 g/dL (14.1-18.0); Lymphocytes # 1.1 K/mm3 (0.7-4.5); Lymphocytes % 13.7 % (10-50); Mean Corpuscular HGB Conc 31.3 g/dL (31.8-35.4); Mean Corpuscular Hemoglobin 29.2 pg (27.0-31.2); Mean Corpuscular Volume 93.3 fl (80-94); Mean Platelet Volume 8.7 fl (7.4-10.4); Monocytes # 0.5 K/mm3 (0.1-1.0); Monocytes % 6.4 % (1.7-9.3); Neutrophils # 6.1 K/mm3 (1.8-7.8); Platelet Count 177 K/mm3 (142-424); Red Blood Count 4.48 M/mm3 (4.60-6.20); Red Cell Distribution Width 15.4 % (11.5-17.5); White Blood Count 7.9 K/mm3 (4.8-10.8)
[2022-10-14 09:28] LABS: Anion Gap 6.5 mEq/L (5-15); Blood Urea Nitrogen 15 mg/dl (9-20); Calcium 8.5 mg/dl (8.4-10.2); Carbon Dioxide 36 mmol/L (22.0-30.0); Chloride 101 mmol/L (98-107); Creatinine Clearance Estimated 88 mL/min (50-200); Estimated Glomerular Filt Rate 81 ml/min (>60); GFR (African American) 98 ML/MIN (>60); Glucose 203 mg/dl (74-100); Magnesium 1.7 mg/dl (1.6-2.3); Potassium 4.5 mmoL/L (3.5-5.1); Sodium 139 mmol/L (136-145)
[2022-10-14 09:37] LABS: Hemoglobin A1C 6.5 % (4.0-6.0); NT Pro Brain Natriuretic Pep. 1370 pg/mL (0-450)
[2022-10-14 09:44] LABS: Procalcitonin 0.065 ng/mL (0.0-2.0)
[2022-10-15] VITALS: BP 163/95; PULSE 80; RESP 16; TEMP 37.2; O2SAT 96
[2022-10-15 04:00] VITALS: BP 150/95; PULSE 68; RESP 18; TEMP 36.8; O2SAT 97; BMI 29.9
--- NOTE | 2022-10-15 05:24 | PC.NURSE ---
pt rested well through the night, stable on room air. a&ox4. no complaints of chest pain. still sob upon exertion
[2022-10-15 06:20] VITALS: PULSE 62; PULSE 65; O2SAT 94
--- NOTE | 2022-10-15 07:52 | EXP.DC.SUM ---
General Admission date:: 10/13/22 Discharge date: 10/15/22 HPI HPI HPI: This is an 82-year-old male that presents to [facility] emergency department with concerns of shortness of air. His past medical history is significant for hypertension and diminished hearing capacity. He reports approximately 6 weeks ago he saw his PCP for shortness of air and received an antibiotic therapy and he was feeling better. Approximately 2 weeks ago he started feeling short of air again. He reports no associated cough, production of sputum, fever or chills. He denies retrosternal chest pain, palpitations or increased lower extremity edema. He reports his shortness of air has become worse over the past week and occurs with minimal exertion (NYHA III) including bending over to tie his shoes. He has identified orthopnea and has to sleep sitting up. He has not identified any confusion, hallucinations or night sweats. He reports that he has a 3-year-old great granddaughter that captures his affection and reports that she has been ill a few times this winter. In the ED a chest x-ray is personally interpreted is concerning for pneumonia, cardiomegaly and pulmonary edema. I have reviewed and personally interpreted his ED labs which identify a mild leukocytoses and normal creatinine and lactic acid. His troponin is negative and his BNP is 1770. He reports improved dyspnea after his IV loop diuretic therapy. I have personally discussed the case with the ED provider Dr. Wing Schneider and we discussed that he lives alone, his advanced age and no prior history of cardiology visits or cardiovascular diagnoses other than hypertension. Hospital Course Hospital Course Hospital Course: The patient is admitted to the medical floor with pulse oximetry monitoring oxygen supplementation. Blood cultures were acquired and he is started on broad-spectrum antibiotic therapy for findings on his chest imaging (chest x-ray and CTA chest). He is also started on loop diuretic therapy, beta-enrique therapy and continued on his ARB therapy for concerns of heart failure with preserved ejection fraction. An echocardiogram identifies an ejection fraction of 50% with grade 1 diastolic dysfunction and aortic stenosis mild. The patient identifies improvement and his oxygen requirements diminished. He is able to ambulate in his room on room air with no further dyspnea reported. His laboratory studies and inflammatory markers are trended and his CBC identifies a resolved leukocytoses. With his identified improvement and inquires about discharge home. We recommend a 1 week follow-up with his PCP, ongoing outpatient antibiotic therapy for 7 to 10 days with inhalation therapy. We have also recommended continuation of his ARB therapy and beta-enrique therapy. He will discuss the need for loop diuretic with his PCP. Exam Data for Last 24 hours Vital signs and Labs for Last 24 Hours: Temp Pulse Resp BP Pulse Ox FiO2 98.3 F 65 18 150/95 H 94 L 28 10/15/22 04:00 10/15/22 06:20 10/15/22 04:00 10/15/22 04:00 10/15/22 06:20 10/14/22 19:32 Laboratory Results - last 24 hr 10/14/22 09:00: WBC 7.9 D, RBC 4.48 L, Hgb 13.1 L, Hct 41.8 L, MCV 93.3, MCH 29.2, MCHC 31.3 L, RDW 15.4, Plt Count 177, MPV 8.7, Neut % (Auto) 77.0, Lymph % (Auto) 13.7, [place] % (Auto) 6.4, Eos % (Auto) 2.4, Baso % (Auto) 0.6, Neut # (Auto) 6.1, Lymph # (Auto) 1.1, [place] # (Auto) 0.5, Eos # (Auto) 0.2, Baso # (Auto) 0.1 10/14/22 09:00: Sodium 139, Potassium 4.5, Chloride 101, Carbon Dioxide 36 H, Anion Gap 6.5, BUN 15, Creatinine 0.90 D, Estimated Creat Clear 88, Estimated GFR 81, Est GFR ( Amer) 98 D, Glucose 203 H, Calcium 8.5, Magnesium 1.7, NT-Pro-B Natriuret Pep 1370 H, Procalcitonin 0.065 10/14/22 09:00: Hemoglobin A1c 6.5 H I & O for Last 24 hours: Intake & Output 10/12/22 10/13/22 10/14/22 10/15/22 23:59 23:59 23:59 23:59 Intake Total 580 / 580 1920 / 1920 Output Total 250 / 25
[2022-10-15 08:00] VITALS: PULSE 77; RESP 18; TEMP 36.6; O2SAT 96
[2022-10-15 08:19] VITALS: BP 163/79; PULSE 78
--- NOTE | 2022-10-15 09:38 | PC.NURSE ---
pt has been discahrged from the unit. Voiced understanding of all disachrgae education and follow up appts along with medication changes. saline lock dicontinued. Family picked him up vis private car
--- NOTE | 2022-10-16 13:30 | CARE MANAGER ---
Spoke with patient for post-discharg phone interview, no issues noted.
[2022-10-17 15:37] LABS: Body Fluid Culture, Sterile Not indicated. (.); Legionella pneumophila Urinary Negative (Negative); Organism ID Not indicated. (.); Specimen Source Urine (.); Streptococcus pneumoniae Ag Negative (Negative)
== END 2022-10-15 09:22 | disposition home or self-care (01) | DRG 193 ==
LOC: ER 08:57 → 2ND 11:11
PROVIDERS: Admitting Provider Family Medicine; Emergency Provider Family Medicine; PCP Emergency Medicine; Visit Provider Family Medicine
DX: J18.9 Pneumonia, unspecified organism (principal); I50.31 Acute diastolic (congestive) heart failure; I11.0 Hypertensive heart disease with heart failure; Z79.899 Other long term (current) drug therapy; Z20.822 Contact with and (suspected) exposure to COVID-19
CPT/HCPCS: 36415; 71045; 71275; 80048; 80053; 83036; 83605; 83735; 83880; 84145; 84484; 85025; 87040; 87070; 87205; 87899; 92610; 93005; 93306; 94640; 94761; 99285; C9803; G0378; J0696; Q9967; U0003; U0005

== ENCOUNTER → 2022-10-26 10:00 | Outpatient (CLI) | payer MEDICARE, SELFPAY ==
--- NOTE | 2022-10-26 10:03 | XR_ITS ---
FINAL REPORT CLINICAL HISTORY: PNEUMONIA FINDINGS: 2 views of the chest were obtained . The heart is enlarged. There is stable pulmonary vascular congestion. Postoperative changes are again seen in the right thorax. The mediastinum is within normal limits. There is a small right pleural effusion or pleural thickening. Partially improved aeration is seen at the right lung base. There is no pneumothorax. Osseous structures are unremarkable. IMPRESSION: Partially improved aeration at the right lung base with small right pleural effusion or pleural thickening. Reviewed, Interpreted and Dictated by Bhaskar Abel III, MD Transcribed by Clara Mills Authenticated and [facility]
== END ==
PROVIDERS: PCP Family Medicine; Visit Provider Family Medicine
DX: J18.9 Pneumonia, unspecified organism (principal)
CPT/HCPCS: 71046

== ENCOUNTER → 2022-11-06 09:48 | Outpatient (CLI) | payer MEDICARE, SELFPAY ==
--- NOTE | 2022-11-06 09:53 | XR_ITS ---
FINAL REPORT CLINICAL HISTORY: shortness of breath COMPARISON: 10/26/2022 FINDINGS: Two views of the chest were obtained. There is cardiomegaly with pulmonary vascular congestion which appears stable. The mediastinum is normal. There are worsening pulmonary opacities which favor pulmonary edema. There is a right pleural effusion versus pleural thickening. There is no pneumothorax. There are postoperative changes in the right thorax. The bony thorax is intact. IMPRESSION: Worsening pulmonary opacities, favor edema with a right pleural effusion versus pleural thickening. Reviewed, Interpreted and Dictated by Bhaskar Abel III, MD Transcribed by Fanta Minor Authenticated and [facility]
[2022-11-06 10:25] LABS: MANUAL DIFFERENTIAL MANUAL DIFFERENTIAL (MANUAL DIFF)
[2022-11-06 10:50] LABS: Basophils # 0.1 K/mm3 (0-0.2); Basophils % 0.6 % (0.1-2.0); Eosinophils # 0.3 K/mm3 (0.0-0.4); Eosinophils % 3.3 % (0.1-12.0); Hematocrit 42.8 % (42.0-52.0); Hemoglobin 13.5 g/dL (14.1-18.0); Lymphocytes # 1.5 K/mm3 (0.7-4.5); Lymphocytes % 17.9 % (10-50); Mean Corpuscular HGB Conc 31.5 g/dL (31.8-35.4); Mean Platelet Volume 8.8 fl (7.4-10.4); Monocytes # 0.6 K/mm3 (0.1-1.0); Monocytes % 6.9 % (1.7-9.3); Neutrophils # 5.8 K/mm3 (1.8-7.8); Neutrophils % 71.3 % (37.0-80.0); Platelet Count 205 K/mm3 (142-424); Red Blood Count 4.66 M/mm3 (4.60-6.20); Red Cell Distribution Width 15.5 % (11.5-17.5); White Blood Count 8.1 K/mm3 (4.8-10.8)
[2022-11-06 11:31] LABS: Alanine Aminotransferase 26 U/L (12-78); Albumin Level 3.5 g/dl (3.5-5.0); Albumin/Globulin Ratio 1.1 (1.1-1.8); Alkaline Phosphatase 74 U/L (38-126); Anion Gap 6.5 mEq/L (5-15); Aspartate Amino Transferase 29 U/L (17-59); Bilirubin,Total 0.5 mg/dl (0.2-1.3); Blood Urea Nitrogen 18 mg/dl (9-20); Calcium 8.5 mg/dl (8.4-10.2); Carbon Dioxide 30 mmol/L (22.0-30.0); Chloride 104 mmol/L (98-107); Chol/HDL Ratio 4.4 (1-3.5); Cholesterol 184 mg/dl (140-200); Estimated Glomerular Filt Rate 109 ml/min (>60); GFR (African American) 131 ML/MIN (>60); Globulin 3.3 g/dL (1.3-3.2); Glucose 136 mg/dl (74-100); HDL Cholesterol 42 mg/dl (40-60); Potassium 4.5 mmoL/L (3.5-5.1); Sodium 136 mmol/L (136-145); Total Protein,Serum 6.8 g/dl (6.3-8.2); Triglycerides 215 mg/dl (30-150); VLDL Cholesterol 43 mg/dL (0-40)
[2022-11-06 11:39] LABS: NT Pro Brain Natriuretic Pep. 1720 pg/mL (0-450)
[2022-11-06 11:43] LABS: Direct LDL Cholesterol 107.62 mg/dL (100-129)
[2022-11-06 12:08] LABS: Hemoglobin A1C 6.3 % (4.0-6.0)
[2022-11-06 12:38] LABS: Eosinophils % 1 % (0-3); Lymphocytes % 31 % (10-50); Monocytes % 4 % (2-9); Neutrophils % 64 % (42-76); Platelet Estimate Normal; RBC Morphology Normal; Total Cells Counted 100
[2022-11-16 00:08] LABS: 1,25 Dihydroxy Vitamin D 40 pg/mL (.); 1,25-Dihydroxy, Vitamin D-2 23 pg/mL (.); 1,25-Dihydroxy, Vitamin D-3 17 pg/mL (.)
== END ==
LOC: LAB 09:49
PROVIDERS: PCP Family Medicine; Visit Provider Family Medicine
DX: I50.31 Acute diastolic (congestive) heart failure (principal); J18.9 Pneumonia, unspecified organism; E11.9 Type 2 diabetes mellitus without complications; E66.9 Obesity, unspecified; H91.90 Unspecified hearing loss, unspecified ear; I10 Essential (primary) hypertension; Z68.30 Body mass index [BMI] 30.0-30.9, adult; Z79.899 Other long term (current) drug therapy
CPT/HCPCS: 36415; 71046; 80053; 80061; 82652; 83036; 83880; 85007; 85014; 85018; 85048; 85049

== ENCOUNTER → 2022-11-13 09:36 | Outpatient (CLI) | payer MEDICARE, SELFPAY ==
--- NOTE | 2022-11-13 09:40 | XR_ITS ---
FINAL REPORT TECHNIQUE: Chest PA & Lateral CLINICAL HISTORY: congestive heart failure, PNA COMPARISON: November 06, 2022 FINDINGS: 2 views of the chest were performed. There is postoperative change in the right thorax. The heart size is normal. The mediastinum is within normal limits. There is persistent pulmonary vascular congestion. There is a small right pleural effusion. There is mild right lung base atelectasis. There is no pneumothorax. The bony thorax appears intact. IMPRESSION: Persistent pulmonary vascular congestion with a small right pleural effusion and underlying right base atelectasis. Reviewed, Interpreted and Dictated by Bhaskar Abel III, MD Transcribed by Fran Duncan Authenticated and [facility]
[2022-11-13 10:07] LABS: Basophils # 0.1 K/mm3 (0-0.2); Basophils % 0.7 % (0.1-2.0); Eosinophils # 0.2 K/mm3 (0.0-0.4); Eosinophils % 2.8 % (0.1-12.0); Hematocrit 44.2 % (42.0-52.0); Hemoglobin 14.2 g/dL (14.1-18.0); Lymphocytes # 1.2 K/mm3 (0.7-4.5); Lymphocytes % 15.4 % (10-50); Mean Corpuscular HGB Conc 32.1 g/dL (31.8-35.4); Mean Corpuscular Hemoglobin 29.5 pg (27.0-31.2); Mean Corpuscular Volume 91.9 fl (80-94); Mean Platelet Volume 8.4 fl (7.4-10.4); Monocytes # 0.5 K/mm3 (0.1-1.0); Neutrophils # 5.8 K/mm3 (1.8-7.8); Neutrophils % 75.1 % (37.0-80.0); Platelet Count 195 K/mm3 (142-424); Red Blood Count 4.81 M/mm3 (4.60-6.20); Red Cell Distribution Width 15.3 % (11.5-17.5); White Blood Count 7.7 K/mm3 (4.8-10.8)
[2022-11-13 10:40] LABS: Chloride 101 mmol/L (98-107); Potassium 4.2 mmoL/L (3.5-5.1); Sodium 139 mmol/L (136-145)
[2022-11-13 10:42] LABS: Alanine Aminotransferase 19 U/L (12-78); Aspartate Amino Transferase 22 U/L (17-59); Blood Urea Nitrogen 19 mg/dl (9-20); Estimated Glomerular Filt Rate 109 ml/min (>60); GFR (African American) 131 ML/MIN (>60)
[2022-11-13 10:43] LABS: Albumin Level 3.7 g/dl (3.5-5.0); Albumin/Globulin Ratio 1.2 (1.1-1.8); Alkaline Phosphatase 69 U/L (38-126); Anion Gap 9.2 mEq/L (5-15); Bilirubin,Total 0.5 mg/dl (0.2-1.3); Calcium 8.8 mg/dl (8.4-10.2); Carbon Dioxide 33 mmol/L (22.0-30.0); Globulin 3.2 g/dL (1.3-3.2); Glucose 127 mg/dl (74-100); Total Protein,Serum 6.9 g/dl (6.3-8.2)
[2022-11-13 10:52] LABS: NT Pro Brain Natriuretic Pep. 1310 pg/mL (0-450)
== END ==
LOC: LAB 09:38
PROVIDERS: PCP Family Medicine; Visit Provider Family Medicine
DX: I50.9 Heart failure, unspecified (principal); I50.31 Acute diastolic (congestive) heart failure; I10 Essential (primary) hypertension
CPT/HCPCS: 36415; 71046; 80053; 83880; 85025